=== PATIENT | female | born 1960 | race Caucasian/White ===

== ENCOUNTER 2018-06-07 23:42 | Emergency (ER) | payer BC, OTHER ==
[~2018-06-07] VITALS: Ht 157.5 cm; Wt 74.8 kg
[~2018-06-07 23:42] MED LIST: CYCL5TAB PO; HYDR-2761 PO
[2018-06-08] MEDS ORDERED: KETOROLAC 15 MG/ML VIAL. IV ONE (00:30)
[2018-06-08] MEDS ORDERED: IV NORMAL SALINE 1000ML BAG 1,000 ML IV ONE (00:30)
--- NOTE | 2018-06-08 00:39 | PHYS DOC ---
Past Medical History Past Medical History: High Cholesterol, Hypertension, Hypothyroid Past Surgical History: Additional Past Surgical Histo: RIGHT KNEE Alcohol Use: None Drug Use: None Adult General Chief Complaint Chief Complaint: URINARY RETENTION HPI HPI Patient is a 57 year old female who presents with inability to void for 2 days. Bilateral flank pain and swelling. She notes that she has "swelling" in her spine since April 2018 when she was seen in [place] for neck and upper back pain. She denies any loss of bowel or bladder control. She notes that she was running a fever of 102� shortly before coming to the emergency department nothing to help with this fever. She reports having dysuria. Denies any new nausea, vomiting, also notes that she has constipation for the past 2 days. She denies taking any medicine for this discomfort. Nothing seems to make the symptoms better or worse.[] Review of Systems Review of Systems Constitutional: Denies chills [] Eyes: Denies change in visual acuity, redness, or eye pain [] HENT: Denies nasal congestion or sore throat [] Respiratory: Denies cough or shortness of breath [] Cardiovascular: No additional information not addressed in HPI [] GI: Denies abdominal pain, nausea, vomiting, bloody stools or diarrhea [] : Denies hematuria [] Musculoskeletal: See history of present illness[] Integument: Denies rash or skin lesions [] Neurologic: Denies headache, focal weakness or sensory changes [] Endocrine: Denies polyuria or polydipsia [] All other systems were reviewed and found to be within normal limits, except as documented in this note. Current Medications Current Medications Current Medications Medications (Trade) Dose Ordered Sig/[facility] Start Time Stop Time Status Last Admin Dose Admin Ketorolac Tromethamine (Toradol 15mg Vial) 15 mg 1X ONCE 06/08/18 00:30 06/08/18 00:32 DC 06/08/18 01:16 15 MG Sodium Chloride 1,000 ml @ 1,000 mls/hr 1X ONCE 06/08/18 00:30 06/08/18 01:29 DC 06/08/18 01:17 1,000 MLS/HR Allergies Allergies Allergies Coded Allergies Type Severity Reaction Last Updated Verified No Known Drug Allergies 01/30/16 No Physical Exam Physical Exam Constitutional: Well developed, well nourished, mild discomfort, non-toxic appearance. [] HENT: Normocephalic, atraumatic, bilateral external ears normal, oropharynx moist, no oral exudates, nose normal. [] Eyes: PERRLA, EOMI, conjunctiva normal, no discharge. [] Neck: Normal range of motion, no tenderness, supple, no stridor. [] Cardiovascular:Heart rate regular rhythm, no murmur [] Lungs & Thorax: Bilateral breath sounds clear to auscultation [] Abdomen: Bowel sounds normal, soft, no tenderness, no masses, no pulsatile masses. [] Skin: Warm, dry, no erythema, no rash. [] Back: No tenderness, bilateral CVA tenderness. [] Extremities: No tenderness, no cyanosis, no clubbing, ROM intact, no edema. [] Neurologic: Alert and oriented X 3, normal motor function, normal sensory function, no focal deficits noted. [] Psychologic: Increased word pace, judgement normal. [] Current Patient Data Vital Signs Vital Signs Date Time Temp Pulse Resp B/P (MAP) Pulse Ox O2 Delivery O2 Flow Rate FiO2 06/08/18 00:40 99.6 107 20 114/70 (85) 98 Room Air 99.6 Lab Values Laboratory Tests Test 06/08/18 00:50 White Blood Count 12.2 x10^3/uL (4.0-11.0) H Red Blood Count 4.94 x10^6/uL (3.50-5.40) Hemoglobin 13.6 g/dL (12.0-15.5) Hematocrit 41.1 % (36.0-47.0) Mean Corpuscular Volume 83 fL (79-100) Mean Corpuscular Hemoglobin 28 pg (25-35) Mean Corpuscular Hemoglobin Concent 33 g/dL (31-37) Red Cell Distribution Width 13.0 % (11.5-14.5) Platelet Count 255 x10^3/uL (140-400) Neutrophils (%) (Auto) 78 % (31-73) H Lymphocytes (%) (Auto) 12 % (24-48) L Monocytes (%) (Auto) 9 % (0-9) Eosinophils (%) (Auto) 1 % (0-3) Basophils (%) (Auto) 1 % (0-3) Neutrophils # (Auto) 9.5 x10^3uL (1.8-7.7) H Lymphocytes # (Auto) 1.5 x10^3/uL (1.0-4.8) Monocytes # (Auto) 1.1 x10^3/uL (0.0-1.1) Eosinophils # (Auto) 0.1 x10^3/uL (0.0-0.7) Basophils # (Auto) 0.1 x10^3/uL (0.0-0.2) Sodium Level 136 mmol/L (136-145) Potassium Level 3.4 mmol/L (3.5-5.1) L Chloride Level 100 mmol/L (98-107) Carbon Dioxide Level 27 mmol/L (21-32) Anion Gap 9 (6-14) Blood Urea Nitrogen 18 mg/dL (7-20) Creatinine 0.9 mg/dL (0.6-1.0) Estimated GFR (Cockcroft-Gault) 65.0 BUN/Creatinine Ratio 20 (6-20) Glucose Level 99 mg/dL (70-99) Calcium Level 9.3 mg/dL (8.5-10.1) Total Bilirubin 0.8 mg/dL (0.2-1.0) Aspartate Amino Transferase (AST) 14 U/L (15-37) L Alanine Aminotransferase (ALT) 20 U/L (14-59) Alkaline Phosphatase 136 U/L (46-116) H Total Protein 7.4 g/dL (6.4-8.2) Albumin 3.1 g/dL (3.4-5.0) L Albumin/Globulin Ratio 0.7 (1.0-1.7) L Lipase 56 U/L (73-393) L Laboratory Tests 06/08/18 00:50 Laboratory Tests 06/08/18 00:50 EKG EKG [] Radiology/Procedures Radiology/Procedures CT ABDOMEN PELVIS WO CONTRAST Abdominal and Pelvis CT, Without Contrast: History: Left flank pain. Comparison: None. Procedure: Axial images are obtained of the abdomen and pelvis, without IV or oral contrast. CT Abdomen without Contrast: Findings: Evaluation of solid organs is limited without contrast. Evaluation of stomach and bowel is limited without oral contrast. Liver: Normal. Spleen: Normal. Pancreas: Normal. Adrenal Glands: Normal. Kidneys: Mild prominence renal pelvises bilaterally is likely extra renal pelvises. There is mild right hydroureter and retroperitoneal edema on the right. There is no free air or free fluid. There is no lymphadenopathy. There is beam Ruelas artifact due to hardware from prior fusion of L4-L5. Impression: Please see CT Pelvis without Contrast. End Impression. CT Pelvis without Contrast: Findings: The urinary bladder appears normal. There is no free fluid. There is no lymphadenopathy. There is no pericolonic inflammation identified. The appendix is not well seen. There is edema in the retroperitoneal space on the right. Impression: Mild retroperitoneal edema on the right and mild right hydroureter. There is no radiopaque stones seen. Clinical correlation suggested. Recent passage of a stone is possible.[] Course & Med Decision Making Course & Med Decision Making Pertinent Labs and Imaging studies reviewed. (See chart for details) ED course: Patient arrived, was placed in bed, tolerated exam well. Patient was given IV fluids as well as parenteral NSAIDs since there was noted to be minimal fluid in her bladder. As well as to help with pain control. Patient was transported to and from CT with any complications. Patient did not allow time for additional bladder scan after the IV fluids. Patient elected to leave AGAINST MEDICAL ADVICE. She was warned of the risks to include or permanent disability and was able to state these in her own words. Patient appeared able to make an informed decision.[] Dragon Disclaimer Dragon Disclaimer This electronic medical record was generated, in whole or in part, using a voice recognition dictation system. Departure Departure Impression: Primary Impression: Flank pain Disposition: AGAINST MEDICAL ADVICE Condition: IMPROVED Referrals: NO PCP (PCP) MARLYN WEBER DO Jun 08, 2018 00:39
[2018-06-08 01:14] LABS: BASO # 0.1 x10^3/uL (0.0-0.2); BASO % 1 % (0-3); EOS # 0.1 x10^3/uL (0.0-0.7); EOS % 1 % (0-3); HEMATOCRIT 41.1 % (36.0-47.0); HEMOGLOBIN 13.6 g/dL (12.0-15.5); LYMPH # 1.5 x10^3/uL (1.0-4.8); LYMPH % 12 % (24-48); MEAN CORPUSCULAR HEMOGLOBIN 28 pg (25-35); MEAN CORPUSCULAR HGB CONC 33 g/dL (31-37); MEAN CORPUSCULAR VOLUME 83 fL (79-100); MONO # 1.1 x10^3/uL (0.0-1.1); MONO % 9 % (0-9); NEUT # 9.5 x10^3uL (1.8-7.7); NEUT % 78 % (31-73); PLATELET COUNT 255 x10^3/uL (140-400); RED BLOOD COUNT 4.94 x10^6/uL (3.50-5.40); WHITE BLOOD COUNT 12.2 x10^3/uL (4.0-11.0)
[2018-06-08 01:18] LABS: CALCIUM 9.3 mg/dL (8.5-10.1); CREATININE 0.9 mg/dL (0.6-1.0); POTASSIUM 3.4 mmol/L (3.5-5.1)
[2018-06-08 01:21] VITALS: BP 129/70
--- NOTE | 2018-06-08 01:22 | RAD ---
Abdominal and Pelvis CT, Without Contrast: History: Left flank pain. Comparison: None. Procedure: Axial images are obtained of the abdomen and pelvis, without IV or oral contrast. CT Abdomen without Contrast: Findings: Evaluation of solid organs is limited without contrast. Evaluation of stomach and bowel is limited without oral contrast. Liver: Normal. Spleen: Normal. Pancreas: Normal. Adrenal Glands: Normal. Kidneys: Mild prominence renal pelvises bilaterally is likely extra renal pelvises. There is mild right hydroureter and retroperitoneal edema on the right. There is no free air or free fluid. There is no lymphadenopathy. There is beam Ruelas artifact due to hardware from prior fusion of L4-L5. Impression: Please see CT Pelvis without Contrast. End Impression. CT Pelvis without Contrast: Findings: The urinary bladder appears normal. There is no free fluid. There is no lymphadenopathy. There is no pericolonic inflammation identified. The appendix is not well seen. There is edema in the retroperitoneal space on the right. Impression: Mild retroperitoneal edema on the right and mild right hydroureter. There is no radiopaque stones seen. Clinical correlation suggested. Recent passage of a stone is possible. End impression PQRS Compliance Statement: One or more of the following individualized dose reduction techniques were utilized for this examination: 1. Automated exposure control 2. Adjustment of the mA and/or kV according to patient size 3. Use of iterative reconstruction technique Electronically signed by: Karlos Newman III, MD (06/08/2018 1:17 AM) [id number]
[2018-06-08 01:23] LABS: ALBUMIN 3.1 g/dL (3.4-5.0); ALBUMIN/GLOBULIN RATIO 0.7 (1.0-1.7); TOTAL BILIRUBIN 0.8 mg/dL (0.2-1.0); TOTAL PROTEIN 7.4 g/dL (6.4-8.2)
== END 2018-06-08 02:14 | disposition left against medical advice (07) ==
LOC: ER 23:42
DX: N13.4 Hydroureter (principal); R19.00 Intra-abdominal and pelvic swelling, mass and lump, unspecified site; R50.9 Fever, unspecified; R10.9 Unspecified abdominal pain; R60.0 Localized edema; E78.00 Pure hypercholesterolemia, unspecified; I10 Essential (primary) hypertension; E03.9 Hypothyroidism, unspecified; Z98.890 Other specified postprocedural states
CPT/HCPCS: 36415; 74176; 80053; 83690; 85025; 96374; 99284; J1885; J7030